=== PATIENT | female | born 1960 | race Caucasian/White ===

== ENCOUNTER 2017-04-12 21:09 | Emergency (ER) | payer BC, OTHER ==
[~2017-04-12 21:09] MED LIST: CAL-TAB4 PO; MONT10TA4 PO; MULT-65 PO; SERT-129 PO; TETA1INJ4 IM; [UNRECOGNIZED DRUG - CODE] IM; [UNRECOGNIZED DRUG - OTHER]
[2017-04-12 21:22] VITALS: BP 127/71; PULSE 85; RESP 20; TEMP 98.1; O2SAT 97
--- NOTE | 2017-04-12 21:41 | PD ---
HPI Chief Complaint: Injury Time Seen by Provider: 21:39 Travel History International Travel<30 days: No Contact w/Intl Traveler<30days: No Traveled to known affect area: No History of Present Illness HPI 56-year-old female presents to the emergency department by private transportation for evaluation of left foot pain and swelling since 3 PM this afternoon. Patient states that she was stepping out of her vehicle and misstepped onto an uneven surface twisting her foot underneath her causing her to fall. Patient states she heard a pop at the time. Patient rates her pain 4- 5/10 intensity. Patient did take a dose of Advil and applied ice to the foot. Patient states the foot throbs. Patient denies any ankle pain lower leg pain knee pain upper leg pain and hip pain or other injury. Patient states she did not hit her head did not have loss of consciousness did not injure her neck back chest abdomen or other extremity. No prior history of injury to the left foot. PFSH Past Medical History Narrative Medical Depression; appendectomy tonsillectomy; no tobacco use no alcohol use; nursing notes reviewed Depression: Yes Diminished Hearing: No Tetanus Vaccination: > 5 Years Influenza Vaccination: No ?: Not Menopausal: Yes Tubal Ligation: Yes Past Surgical History Appendectomy: Yes Tonsillectomy: Yes Social History Alcohol Use: No Tobacco Use: No Substance Use: No Allergies-Medications (Allergen,Severity, Reaction): Coded Allergies: No Known Allergies (Verified Adverse Reaction, Unknown, 04/12/17) Reported Meds & Prescriptions Reported Meds & Active Scripts Active Sertraline (Sertraline HCl) 100 Mg Tab 100 Mg PO DAILY Review of Systems Except as stated in HPI: all other systems reviewed are Neg Physical Exam Narrative GENERAL: Well-developed well-nourished female in no acute distress or respiratory distress SKIN: Warm and dry. MUSCULOSKELETAL: No cyanosis, or edema. Attention left foot positive ecchymosis soft tissue swelling and tenderness to the midfoot lateral aspect; Data Data Last Documented VS Vital Signs Date Time Temp Pulse Resp B/P (MAP) Pulse Ox O2 Delivery O2 Flow Rate FiO2 04/12/17 21:22 98.1 85 20 127/71 (89) 97 Orders Orders Foot, Complete ([id number]) (04/12/17 ) Splint Or Brace Apply/Monitor (04/12/17 22:20) Crutches (04/12/17 22:20) Ed Discharge Order (04/12/17 22:20) [facility] Medical Decision Making Medical Screen Exam Complete: Yes Emergency Medical Condition: Yes Medical Record Reviewed: Yes Interpretation(s) Last Impressions Foot X-Ray 04/12/17 0000 Signed Impressions: Service Date/Time: Wednesday, April 12, 2017 21:43 - CONCLUSION: 1. Nondisplaced fracture across the base of the fifth metacarpal. Silver Enamorado MD Differential Diagnosis Sprain strain fracture; no compartment syndrome Narrative Course Imaging study ordered Imaging consistent with nondisplaced fifth metatarsal tarsal base fracture; patient informed of imaging results Short-leg posterior splint and crutches applied patient referred to podiatry Diagnosis Primary Impression: Metatarsal fracture Qualified Codes: S92.355A - Nondisplaced fracture of fifth metatarsal bone, left foot, initial encounter for closed fracture Referrals: [employer] Vice President call for appointment Patient Instructions: General Instructions Additional Instructions: Use crutches to assist ambulation avoid weightbearing on left foot Follow-up with trash collector supervisor or orthopedist Return to the emergency department for any concerns or change in condition Elevate foot for first 12-24 hrs. and apply ice intermittently for the first 12- 24 hours May take as tolerated [id number] ibuprofen 600 mg as often as every 6-8 hours as needed for pain associated with inflammation Take pain medication as prescribed as needed for aware that all pain medication may impair judgment, delayed reaction time, increased risk of fall, or cause constipation Med/Other Pt SpecificInfo: Prescription(s) given Scripts Oxycodone-Acetaminophen (Percocet) 5-325 mg Tab 1 TAB PO Q6H Y for PAIN, #7 TAB 0 Refills Prov: Chica Hughes MD 04/12/17 Ondansetron Odt (Zofran Odt) 4 Mg Tab 4 MG SL Q6HR Y for Nausea/Vomiting, #10 TAB 0 Refills Prov: Chica Hughes MD 04/12/17 Disposition: 01 DISCHARGE HOME Condition: Stable Chica Hughes MD Apr 12, 2017 21:41
--- NOTE | 2017-04-12 22:05 | RADRPT ---
EXAM DATE/TIME: 04/12/2017 21:43 [facility] COMPARISON: No previous studies available for comparison. INDICATIONS : Left foot pain after twisting ankle tonight MEDICAL HISTORY : None. SURGICAL HISTORY : None. ENCOUNTER: Initial ACUITY: 1 day PAIN SCORE: 5/10 LOCATION: Left lateral foot FINDINGS: The examination demonstrates a nondisplaced fracture through the base of the fifth metacarpal. The re mainder the osseous structures are intact. CONCLUSION: 1. Nondisplaced fracture across the base of the fifth metacarpal. Silver Enamorado MD on April 12, 2017 at 22:02 Board Certified Radiologist. This report was verified electronically.
[2017-04-12] MEDS ORDERED: ZOFR4TAB3 SL (22:48)
[2017-04-12] MEDS ORDERED: PERC5TAB12 PO (22:48)
== END 2017-04-12 23:12 | disposition home or self-care (01) ==
LOC: PHEFT 21:09
DX: S92.355A Nondisplaced fracture of fifth metatarsal bone, left foot, initial encounter for closed fracture (principal); F32.9 Major depressive disorder, single episode, unspecified; W17.89XA Other fall from one level to another, initial encounter
CPT/HCPCS: 29515; 73630; 99283; E0113